=== PATIENT | female | born 1950 | race Caucasian/White ===

== ENCOUNTER 2024-03-13 12:24 | Inpatient (IN) | payer OTHER, MEDICAID ==
[~2024-03-13] VITALS: Ht 154.9 cm; Wt 49.9 kg
[2024-03-13 12:38] VITALS: BP 115/67; PULSE 80; RESP 18; TEMP 98.3; O2SAT 98
[2024-03-13] MEDS: NACL 0.9% 1,000 ML IV ONE (13:41)
[2024-03-13 13:56] LABS: BASOPHILS % (AUTO) 0.6 % (0.0-2.0); EOSINOPHILS # (AUTO) 0.1 K/uL (0-0.4); EOSINOPHILS % (AUTO) 1.2 % (0.0-4.0); HEMATOCRIT 40.3 % (36-48); HEMOGLOBIN 13.7 g/dL (12.0-16.0); LYMPHOCYTES # (AUTO) 1.1 K/uL (2.5-16.5); LYMPHOCYTES % (AUTO) 22.9 % (20.5-51.1); MEAN CORPUSCULAR HEMOGLOBIN 30 pg (27-31); MEAN CORPUSCULAR HGB CONC 34 g/dL (33-37); MEAN CORPUSCULAR VOLUME 88.1 fL (80-94); MONOCYTES # (AUTO) 0.5 K/uL (0.8-1.0); MONOCYTES % (AUTO) 9.6 % (1.7-9.3); NEUTROPHILS # (AUTO) 3.2 K/uL (1.8-7.7); NEUTROPHILS % (AUTO) 65.7 % (42.2-75.2); PLATELET COUNT (AUTO) 162 K/uL (140-450); RED BLOOD CELL COUNT(AUTO) 4.58 MIL/uL (4.20-5.40); WHITE BLOOD COUNT (AUTO) 4.8 K/uL (4.8-10.8)
[2024-03-13 14:08] LABS: ANION GAP 10.7 (8-16); CALCIUM 8.8 mg/dL (8.5-10.1); CARBON DIOXIDE 31.3 mmol/L (21-32); CHLORIDE 109 mmol/L (98-107); GLUCOSE 145 mg/dL (74-106); SODIUM SERUM 148 mmol/L (136-145); UREA NITROGEN, BLOOD 20 mg/dL (7-18)
[2024-03-13 14:11] LABS: INR 1.05 (0.8-1.2)
[2024-03-13 14:14] VITALS: O2SAT 99
[2024-03-13 14:17] LABS: ALANINE AMINOTRANSFERASE 30 U/L (12-78); ALBUMIN 3.1 g/dL (3.4-5.0); ALKALINE PHOSPHATASE 85 U/L (50-136); ASPARTATE AMINOTRANSFERASE 34 U/L (15-37); BILIRUBIN,DIRECT 0.2 mg/dL (0.0-0.3); LIPASE 67 U/L (16-77); TOTAL BILIRUBIN 0.7 mg/dL (0.0-1.0)
[2024-03-13] MEDS: POTASSIUM CHLORIDE 10 MEQ TABER PO ONE (16:17)
[2024-03-13 16:54] VITALS: O2SAT 99
[2024-03-13] MEDS: ASPIRIN 81 MG TAB.CHEW PO ONE (17:28)
[2024-03-13 18:17] LABS: BILIRUBIN,URINE 1+ (NEGATIVE); BLOOD, URINE NEGATIVE (NEGATIVE); COLOR,URINE YELLOW (YELLOW); LEUKOCYTE ESTERASE ,URINE TRACE (NEGATIVE); NITRITE, URINE NEGATIVE (NEGATIVE); PROTEIN,URINE TRACE (NEGATIVE); UGLUCOSE NEGATIVE (NEGATIVE)
[2024-03-13 18:21] LABS: APPEARANCE,URINE SLIGHTLY HAZY (CLEAR)
[2024-03-13 18:26] LABS: RBC,URINE 0 /HPF (0-5); WBC,URINE 0-5 /HPF (0-5)
[2024-03-13 18:28] LABS: BACTERIA,URINE 1+ /HPF (None Seen); ICTOTEST POSITIVE (NEGATIVE); MUCUS,URINE None Seen /LPF (None Seen); SQUAMOUS EPITHELIAL CELL,UR 0-3 (FEW) /LPF (0-3 (FEW))
[2024-03-13 18:48] VITALS: O2SAT 99
[2024-03-13] MEDS ORDERED: MORPHINE SULFATE 2 MG/ML SYR IVP PRN (19:10)
[2024-03-13] MEDS ORDERED: ACETAMINOPHEN 325 MG TAB PO PRN (19:10)
[2024-03-13] MEDS ORDERED: ONDANSETRON 4 MG/2 ML VIAL IVP PRN (19:10)
[2024-03-13] MEDS ORDERED: cefTRIAXone 1,000 MG VIAL ONE (19:13)
[2024-03-13 22:50] VITALS: O2SAT 98
[2024-03-13] MEDS: DEXT 5% /NACL 0.9% 1,000 ML IV SCH (23:07)
[2024-03-14 07:55] LABS: BASOPHILS % (AUTO) 0.8 % (0.0-2.0); EOSINOPHILS # (AUTO) 0.1 K/uL (0-0.4); EOSINOPHILS % (AUTO) 2.5 % (0.0-4.0); HEMATOCRIT 35.4 % (36-48); HEMOGLOBIN 12.1 g/dL (12.0-16.0); LYMPHOCYTES # (AUTO) 1.2 K/uL (2.5-16.5); LYMPHOCYTES % (AUTO) 27.9 % (20.5-51.1); MEAN CORPUSCULAR HEMOGLOBIN 30 pg (27-31); MEAN CORPUSCULAR HGB CONC 34 g/dL (33-37); MEAN CORPUSCULAR VOLUME 88.4 fL (80-94); MONOCYTES # (AUTO) 0.4 K/uL (0.8-1.0); MONOCYTES % (AUTO) 9.6 % (1.7-9.3); NEUTROPHILS # (AUTO) 2.5 K/uL (1.8-7.7); NEUTROPHILS % (AUTO) 59.2 % (42.2-75.2); PLATELET COUNT (AUTO) 144 K/uL (140-450); RED CELL DISTRIBUTION WIDTH 16.3 % (11.6-13.7); WHITE BLOOD COUNT (AUTO) 4.3 K/uL (4.8-10.8)
[2024-03-14 07:58] LABS: ANION GAP 9.1 (8-16); CARBON DIOXIDE 28.2 mmol/L (21-32); CHLORIDE 111 mmol/L (98-107); CREATININE 0.9 mg/dL (0.6-1.3); GLUCOSE 93 mg/dL (74-106); POTASSIUM 3.3 mmol/L (3.5-5.1); SODIUM SERUM 145 mmol/L (136-145); UREA NITROGEN, BLOOD 12 mg/dL (7-18)
[2024-03-14 08:52] VITALS: O2SAT 99
[2024-03-14 12:00] VITALS: BP 142/76; PULSE 65; RESP 18; TEMP 97.9; O2SAT 100
[2024-03-14 12:55] VITALS: PULSE 63
[2024-03-14 16:00] VITALS: BP 155/84; PULSE 67; PULSE 70; RESP 18; TEMP 97.4; O2SAT 99
[2024-03-14 20:00] VITALS: BP 140/72; PULSE 56; PULSE 65; RESP 18; TEMP 97.6; O2SAT 99
[2024-03-14] MEDS: KCL 20 MEQ IN 100 mL PREMIX 100 ML IV ONE (21:32)
[2024-03-15] VITALS (8 sets, daily range): BP systolic 118–141; BP diastolic 67–80; PULSE 55–73; RESP 12–18; TEMP 96.6–98.6; O2SAT 98–100
[2024-03-16] VITALS (8 sets, daily range): BP systolic 121–152; BP diastolic 63–86; PULSE 55–90; RESP 12–19; TEMP 95.7–98.1; O2SAT 94–100
[2024-03-16 07:09] LABS: ANION GAP 11.3 (8-16); CALCIUM 8.4 mg/dL (8.5-10.1); CARBON DIOXIDE 24.8 mmol/L (21-32); CHLORIDE 106 mmol/L (98-107); CREATININE 0.8 mg/dL (0.6-1.3); GLUCOSE 86 mg/dL (74-106); POTASSIUM 4.1 mmol/L (3.5-5.1); SODIUM SERUM 138 mmol/L (136-145); UREA NITROGEN, BLOOD 5 mg/dL (7-18)
[2024-03-16 11:38] LABS: BASOPHILS % (AUTO) 0.7 % (0.0-2.0); EOSINOPHILS # (AUTO) 0.1 K/uL (0-0.4); EOSINOPHILS % (AUTO) 1.7 % (0.0-4.0); HEMATOCRIT 40.5 % (36-48); HEMOGLOBIN 13.9 g/dL (12.0-16.0); LYMPHOCYTES # (AUTO) 1.2 K/uL (2.5-16.5); LYMPHOCYTES % (AUTO) 18.4 % (20.5-51.1); MEAN CORPUSCULAR HEMOGLOBIN 30 pg (27-31); MEAN CORPUSCULAR HGB CONC 34 g/dL (33-37); MEAN CORPUSCULAR VOLUME 88.3 fL (80-94); MONOCYTES # (AUTO) 0.6 K/uL (0.8-1.0); NEUTROPHILS # (AUTO) 4.5 K/uL (1.8-7.7); NEUTROPHILS % (AUTO) 70.2 % (42.2-75.2); PLATELET COUNT (AUTO) 155 K/uL (140-450); RED BLOOD CELL COUNT(AUTO) 4.59 MIL/uL (4.20-5.40); RED CELL DISTRIBUTION WIDTH 16.5 % (11.6-13.7); WHITE BLOOD COUNT (AUTO) 6.4 K/uL (4.8-10.8)
[2024-03-17 08:00] VITALS: BP 113/60; PULSE 77; RESP 18; TEMP 97; O2SAT 100
[2024-03-17 16:00] VITALS: BP 128/70; PULSE 74; RESP 18; TEMP 98.5; O2SAT 100
[2024-03-17] MEDS ORDERED: ROC2I IV (17:49)
[2024-03-17] MEDS ORDERED: ACET-1182 PO (17:49)
== END 2024-03-17 17:40 | DRG 683 ==
LOC: MED 12:24 → MTU 03-14 06:22
PROVIDERS: ADMIT Hospitalist; ATTEND Hospitalist
DX: N17.9 Acute kidney failure, unspecified (principal); E87.0 Hyperosmolality and hypernatremia; I24.89 Other forms of acute ischemic heart disease; R53.1 Weakness; E16.2 Hypoglycemia, unspecified; F31.9 Bipolar disorder, unspecified; Z68.20 Body mass index [BMI] 20.0-20.9, adult; Z79.899 Other long term (current) drug therapy; R62.7 Adult failure to thrive
CPT/HCPCS: 36415; 70450; 71045; 80048; 80076; 81001; 83690; 83735; 84484; 85025; 85610; 85730; 87081; 93005; 96361; 96365; 97116; 97163-GP; 99285; J0696; J3480; J7060